=== PATIENT | male | born 1960 | race Two or more races ===

== ENCOUNTER 2017-09-13 00:59 | Emergency (ER) | payer OTHER ==
[~2017-09-13] VITALS: Ht 172.7 cm; Wt 97.1 kg
[2017-09-13 02:00] VITALS: BP 151/89
--- NOTE | 2017-09-13 02:24 | Emergency Room Report ---
History of Present Illness General Chief Complaint: Laceration Source: Patient Present Illness HPI Lac on left thumb from metal fence about [place]. Pt. is in custody. He specifically states he refuses any sutures if necessary. There is no other injury or complaint and patient is here primarily for custodial clearance. No fever, no shortness of breath, no chest pain, no vomiting, no abdominal pain, no syncope, LOC, dizziness, lightheadedness, headache. Allergies: Coded Allergies: No Known Allergies (Unverified , 09/13/17) Nursing Documentation-[facility] Past Medical History: No Stated History Review of Systems Constitutional: Denies: fever Eye: Denies: acuity changes Respiratory: Denies: cough, shortness of breath Cardiovascular: Denies: chest pain Gastrointestinal: Denies: nausea, vomiting Skin: Denies: rash Neurological: Denies: headache Physical Exam Vital Signs Date Time Temp Pulse Resp B/P (MAP) Pulse Ox O2 Delivery O2 Flow Rate FiO2 09/13/17 01:01 98.6 86 20 175/98 98 Room Air 98.6 General Appearance: well appearing, no apparent distress Head: normocephalic, atraumatic ENT: hearing grossly normal, normal voice Neck: full range of motion, supple Respiratory: no respiratory distress, speaking full sentences Musculoskeletal: other - lateral aspect left thumb, nonlinear 2 cm lac, superficial Neurologic: alert, normal gait Psychiatric: mood/affect normal Skin: no rash Procedures Laceration/Wound Repair Laceration/Wound Repair : Consent: Emergent Wound Location: upper extremity Wound's Depth, Shape: superficial, irregular Wound Explored: clean Betadine Prep?: Yes Wound Debrided: minimal Wound Repaired With: Dermabond Layer Closure?: No Sterile Dressing Applied?: Yes Splint Applied?: No Sling Applied?: No Patient Tolerated: Well Complications: None Medical Decision Making Diagnostic Impression: Primary Impression: Laceration Last Vital Signs Date Time Temp Pulse Resp B/P (MAP) Pulse Ox O2 Delivery O2 Flow Rate FiO2 09/13/17 01:01 98.6 86 20 175/98 98 Room Air 98.6 Status: improved Disposition: D/C TO LAW ENFORCEMENT IN CUST Condition: Stable Departure Forms: [facility] Clearance Patient Instructions: Laceration Care, Adult Pedrito Mclean M.D. Sep 13, 2017 02:24
[2017-09-13 02:35] VITALS: BP 151/89
== END 2017-09-13 03:15 ==
LOC: EMR 03:13
DX: S61.012A Laceration without foreign body of left thumb without damage to nail, initial encounter (principal); W45.8XXA Other foreign body or object entering through skin, initial encounter; Y92.89 Other specified places as the place of occurrence of the external cause
CPT/HCPCS: 99283